=== PATIENT | female | born 1985 | race Caucasian/White ===

== ENCOUNTER 2016-08-11 18:16 | Emergency (ER) | payer OTHER ==
[~2016-08-11] VITALS: Ht 167.6 cm; Wt 66.5 kg
[~2016-08-11 18:16] MED LIST: CLIN300C86 PO; LEVO75TA4 PO; MEDR150D9 INJ
[2016-08-11 18:32] VITALS: Ht 167.6 cm; Wt 66.5 kg
--- NOTE | 2016-08-11 18:34 | ERPDOC ---
Departure Disposition Decision Date: Aug 11, 2016 Disposition Decision Time: 19:37 Disposition: 01 DISCHARGED HOME, SELF-CARE Impression Impression Impression: Primary Impression: Palpitation Additional Impression: Hypothyroidism Hypothyroidism type: unspecified Qualified Codes: E03.9 - Hypothyroidism, unspecified Severity: Moderate Condition: Stable Seen By: Mid-level only Referrals: ANITHA FIORE DO (Family) Patient Instructions: Palpitations (ED) Problems/Meds/Labs Reviewed?: Yes Medications reviewed and manag: Yes Additional Instructions: I do want you to call and follow up with Dr Jacobs tomorrow regarding the elevated TSH. Your level today was 11.3. Other labs and EKG were normal. If you have any other issues/concerns then return to ER for reevaluation. Follow up care ordered?: Yes Mental Status: Alert HPI - Chest Pain General Stated Complaint: HEART IS FLUTTERING/CHEST PAIN Time Seen by Provider: 18:18 Source: patient Exam Limitations: no limitations HPI - Chest Pain Initial Comments She was studying for school earlier today and had onset of feeling like she was having palpitations and like her heart was fluttering. She has never had this happen before. Had some slight SOA with the onset but is feeling better now. Is not really feeling the fluttering. She does have a history of hypothyroidism. Has only had one cup of coffee today and a little chocolate as far as caffeine goes. Has been taking medications as prescribed. Occurred At: home Onset/Timing: Rapid Duration: 1-3 hrs Activities at Onset/Context: rest (while studying ) Location: substernal Quality: sharp Associated Symptoms: fast HR, shortness of breath (slight), swelling/lump in chest, syncope, weakness, DENIES: abdominal pain, back pain, diaphoresis, dizziness, edema, fatigue, fever/chills, headache, heartburn, irregular HR, nausea/vomiting, rash, slow HR Chest Pain Radiation: no radiation Nitro Today/Relief: no nitro taken today Aspirin Treatment Today: unknown Hx of Similar Symptoms: No Allergies: Coded Allergies: NKDA (Verified Allergy, Unknown, 04/21/16) Uncoded Allergies: FISH (Allergy, Severe, ANAPHYLACTIC SHOCK, 08/18/13) Past History Patient Surgical History Tonsillectomy Appendectomy Past Medical History Metabolic: hypothyroidism Psychological: depression Surgical History General: appendix, tonsils Vaccines Hx Influenza Vaccination: Yes () Hx Pneumococcal Vaccination: No (UNKNOWN) Social History Substance Use Type: does not use Alcohol Intake: none Sexuality: male partner Review of Systems Constitutional Constitutional: DENIES: chills, dizziness, fatigue, fever, weakness ENMT Ears: DENIES: drainage, pain Sinuses: DENIES: congestion, rhinorrhea Mouth/Throat: DENIES: painful swallowing, scratchy throat, sore throat Cardiovascular Cardiac: chest pain, DENIES: dyspnea on exertion, orthopnea Rhythm/Rate: irregular beat, palpitations, tachycardia Vascular: DENIES: pedal edema, unilateral swelling Pulmonary Respiratory: DENIES: cough, dyspnea, sputum, tachypnea GI Upper Abdomen: DENIES: nausea, pain, vomiting Lower Abdomen: DENIES: constipation, diarrhea, pain Integumentary Skin: DENIES: rash Neurological General: DENIES: headache, numbness, tingling, weakness Physical Exam General General Nourishment: well nourished, well developed, appears stated age, no acute distress, adult General Body Habitus: well groomed Vitals and Pain First Documented Vital Signs Date Time Temp Pulse Resp B/P Pulse Ox O2 Delivery O2 Flow Rate FiO2 08/11/16 18:32 98.9 98 25 136/90 100 Room Air Weight: Kilograms: Height (feet): 5 Height (inches): 5.00 Triage Pain Scale: RN VS reviewed by Provider: Yes Normal Exams: Neck: Full range of motion, without adenopathy, JVD, bruits or thyromegaly Chest/Resp: Clear all chisholm, with good airflow, and symmetry bilaterally CV: Regular rate and rhythm, without murmur or gallop, Pulses 2+ all extremities, capillary refill, <2 seconds all ext., no pedal edema noted Abdomen: Bowel sounds positive, soft, non-tender, non-distended, no hepatosplenomegaly, masses or bruits noted Lymphatic: No lymphadenopathy, or lymphedema noted Integumentary: No rashes, hives, or bruising noted Neurologic: Patient is alert, and oriented Psychiatric: Patient exhibits, appropriate attention, emotion and affect Differential Diagnoses Considering: Acute TN, Anxiety/Panic, PSVT, Muscle Spasm, Other (Stress) Progress Results/Orders Orders Procedure Category Date Status Time EKG EKG 08/11/16 Taken Tsh - Thyroid Stim LAB 3/19/17 Complete Hormone Troponin I W LAB 08/11/16 Complete Hemolysis Index Cbc W/Auto LAB 08/11/16 Complete Diff-Reflex Manual Bmp - Basic Metabolic LAB 08/11/16 Complete Panel Ua, Dip Wreflex LAB 08/11/16 Complete Micro[employer] District Manager 18:27 LAB 08/11/16 Complete Qualitative, Urine 18:27 Lab Results Laboratory Tests Test 08/11/16 18:39 08/11/16 18:59 White Blood Count 8.4T/MM3 Red Blood Count 4.27M/MM3 Hemoglobin 12.5GM/DL Hematocrit 38.9% Mean Corpuscular Volume 91.1UM3 Mean Corpuscular Hemoglobin 29.3UUG Mean Corpuscular Hemoglobin Concent 32.1GM/DL RDW Standard Deviation 40.2FL Platelet Count 267T/MM3 Mean Platelet Volume 9.7UM3 Immature Granulocyte % (Auto) 0.0% Neutrophils (%) (Auto) 38.9% Lymphocytes (%) (Auto) 52.8% Monocytes (%) (Auto) 6.7% Eosinophils (%) (Auto) 1.2% Basophils (%) (Auto) 0.4% Absolute Immature Granulocyte (auto 0.00T/MM3 Absolute Neutrophils (auto) 3.3T/MM3 Absolute Lymphocytes (auto) 4.4T/MM3 Absolute Monocytes (auto) 0.6T/MM3 Absolute Eosinophils (auto) 0.1T/MM3 Absolute Basophils (auto) 0.0T/MM3 Turbidity < 20 Sodium Level 144MEQ/L Potassium Level 3.9MEQ/L Chloride Level 108MEQ/L Carbon Dioxide Level 24MEQ/L Anion Gap 12MEQ/L Blood Urea Nitrogen 12.0MG/DL Creatinine 0.7MG/DL Glomerular Filtration Rate Calc 100 BUN/Creatinine Ratio 17RATIO Glucose Level 81MG/DL Calculated Osmolality 276MOSM/KG Calcium Level 9.0MG/DL Icterus Index < 2 Troponin I < 0.012ng/ml Thyroid Stimulating Hormone (TSH) 11.30MIU/L Chemistry Specimen Hemolysis < 15 Urine Collection Type Cleancatch-midstream Urine Color Yellow Urine Turbidity Clear Urine pH 6.0 Urine Specific [place] 1.015 Urine Protein Negative Urine Glucose (UA) Negative Urine Ketones Negative Urine Blood Negative Urine Nitrite Negative Urine Bilirubin Negative Urine Urobilinogen 0.2EU/DL Urine Leukocyte Esterase Negative Urinalysis Comment Microscopic not ind. Urine Test Negative Progress Progress CBC, BMP, and troponin today are normal. EKG is NSR with rate of 98. She has not had any palpitations or change in rhythm while in ER. TSH is 11.3. I did advise that she call and follow up with her PCP this week for reevaluation of that TSH. DAYO DOMINGUEZ APRN Aug 11, 2016 18:34
--- NOTE | 2016-08-11 18:50 | NUR ---
STATUS PT IN BED HIGH FOWLERS, LOOKING AT HER PHONE. DENIES NEEDS AT THIS TIME
[2016-08-11 18:53] LABS: BASOPHILS % (AUTO) 0.4 % (0-2); EOSINOPHILS # (AUTO) 0.1 T/MM3 (0-0.5); EOSINOPHILS % (AUTO) 1.2 % (0-4); HCT - HEMATOCRIT 38.9 % (36-46); HGB - HEMOGLOBIN 12.5 GM/DL (12-16); LYMPHOCYTES # (AUTO) 4.4 T/MM3 (1-4.8); LYMPHOCYTES % (AUTO) 52.8 % (23-45); MEAN CORPUSCULAR HGB 29.3 UUG (26-34); MEAN CORPUSCULAR HGB CONC(MCHC 32.1 GM/DL (31-37); MEAN CORPUSCULAR VOLUME 91.1 UM3 (80-100); MEAN PLATELET VOLUME 9.7 UM3 (9.4-12.4); MONOCYTES # (AUTO) 0.6 T/MM3 (0-0.8); MONOCYTES % (AUTO) 6.7 % (0-9.0); NEUTROPHILS #(AUTO)-ABSOLUTE 3.3 T/MM3 (1.8-7.7); NEUTROPHILS % (AUTO) 38.9 % (33-66); RED BLOOD COUNT 4.27 M/MM3 (4.00-5.20); WBC - WHITE BLOOD COUNT 8.4 T/MM3 (4.5-11.0)
[2016-08-11 18:58] LABS: ANION GAP 12 MEQ/L (5-15); BUN/CREATININE RATIO 17 RATIO (6-26); CHLORIDE 108 MEQ/L (98-107); CO2 - CARBON DIOXIDE 24 MEQ/L (22-30); CREATININE 0.7 MG/DL (0.7-1.2); GLOMERULAR FILTRATION RATE 100; GLUCOSE 81 MG/DL (65-110); POTASSIUM 3.9 MEQ/L (3.6-5); SODIUM 144 MEQ/L (134-144)
[2016-08-11 19:04] LABS: BLOOD, URINE NEGATIVE (NEGATIVE); COLOR,URINE YELLOW (YELLOW); LEUKOCYTE ESTERASE ,URINE NEGATIVE (NEGATIVE); NITRITE,URINE NEGATIVE (NEGATIVE); UROBILINOGEN,URINE 0.2 EU/DL (NORMAL)
[2016-08-11 19:50] VITALS: BP 112/72; PULSE 91; RESP 23; TEMP 98.9; O2SAT 98
--- OUTSIDE RECORDS SUMMARY | 2016-08-11 20:00 | XMS REPORT | Continuity of Care Document ---
Author Author [facility] Organization [facility] Address Unknown Phone Unavailable Support Name Relationship Address Phone SHORTY KRISHNAMURTHY MD Caregiver [address] [place] [address] Unavailable LAYA JACOBS MD Caregiver [address] [place] [address] Unavailable RYNE CM Next Of Kin [address] [place] [address] CP Insurance Providers Guarantor Jodee Cm Address [address] [place] [address] CP Email [email or web address] Payer [employer] Policy Number [id number] Subscriber's Name Ryne Cm Relationship 01 Spouse Group Number [id number] Chief Complaint and Reason for Visit Chief Complaint Palpitations Reason for Visit Hypothyroidism Palpitation Problems Active Problems Medical Problem Onset Date Status Dehydration Unknown Acute Episode of syncope Unknown Acute related condition in second trimester Unknown Acute with history of caesarean section, antepartum Unknown Acute UTI (urinary tract infection) Unknown Acute Past Problems Medical Problem Onset Date Adverse reaction to drug in therapeutic use Unknown Esophageal reflux Unknown Hypothyroidism Unknown Left shoulder pain Unknown Palpitation Unknown Medications Current Home Medications Medication Dose Units Route Directions Days Qty Instructions Start Date Levothyroxine Sodium (Synthroid) 75 Mcg Tablet 75 Mcg Oral Before Breakfast 04/21/16 Medroxyprogesterone Acetate (Depo-Provera) Unknown Strength Syringe Unknown Dose Injection [id number] 04/21/16 Past Home Medications Medication Directions Ordered Status Psyllium Seed (Metamucil) 1,042 Gm Powder, Unknown Dose Oral As Needed 12/25 Discontinued Social History Social History Problem Response Recorded Date/Time Onset Date Status Hx Substance Use No 08/11/2016 6:43pm Not Applicable Not Applicable Hx Alcohol Use Y RARELY 08/11/2016 6:43pm Not Applicable Not Applicable Has the pt used tobacco in the last 12 months No 04/04/2015 6:15am Not Applicable Not Applicable Tobacco Usage none 04/19/2015 2:20pm Not Applicable Not Applicable Query Response Start Date Stop Date Smoking Status Never smoker Hospital Discharge Instructions No hospital discharge instructions. Plan of Care Discharge Date 08/11/16 7:50pm Disposition 01 DISCHARGED HOME, SELF-CARE Condition at Discharge Stable Instructions/Education Provided Palpitations (ED) Prescriptions See Medication Section Referrals LAYA JACOBS MD Address: [address] [place] [address] [place] [address] Additional Instructions/Education I do want you to call and follow up with Dr Jacobs tomorrow regarding the elevated TSH. Your level today was 11.3. Other labs and EKG were normal. If you have any other issues/concerns then return to ER for reevaluation. Care Plan and Goals Physician Care Plan Problem:Palpitations Goal: Follow up with primary care provider Instructions: Take medications and follow care plan as discussed/written Functional Status No functional status results. Allergies, Adverse Reactions, Alerts Allergen Type Severity Reaction Status Last Updated NKDA Allergy Unknown Active 04/21/16 FISH Allergy Severe ANAPHYLACTIC SHOCK Active 08/18/13 Immunizations Query Response on File Recorded Date/Time Hx Influenza Vaccination Y 11/04/14 7:45am Hx Pneumococcal Vaccination N UNKNOWN 11/04/14 7:45am Hx Influenza Vaccination Y 11/04/14 7:45am Influenza Vaccine Hx 02-24-16 08/11/16 6:43pm Tdap Vaccine Hx 02-23-15 04/04/15 6:15am Vital Signs Acute Vital Signs Vital Response Date/Time Temperature (Fahrenheit) 98.9 deg F (96.8 - 99.1) 08/11/2016 7:50pm Temperature (Calculated Celsius) 37.90467 degrees C (36.0 - 37.3) 08/11/2016 7:50pm Pulse Rate (adult) 91 bpm (60 - 100) 08/11/2016 7:50pm Respiratory Rate 23 breaths/min (10 - 20) 08/11/2016 7:50pm O2 Sat by Pulse Oximetry 98 % (90 - 100) 08/11/2016 7:50pm Blood Pressure 112/72 mm Hg 08/11/2016 7:50pm Height (Feet) 5 feet 08/11/2016 6:32pm Height (Inches) 6.00 inches 08/11/2016 6:32pm Weight (Kilograms) 66.500 kg 08/11/2016 6:32pm Body Mass Index (BMI) 23.0 08/11/2016 6:32pm Results Laboratory Results Test Name Result Units Flags Reference Collection Date/Time Result Date/ Time Comments White Blood Count 8.4 T/MM3 4.5-11.0 08/11/2016 6:39pm 08/11/2016 6: 53pm Red Blood Count 4.27 M/MM3 4.00-5.20 08/11/2016 6:39pm 08/11/2016 6: 53pm Hemoglobin 12.5 GM/DL 12-16 08/11/2016 6:39pm 08/11/2016 6:53pm Hematocrit 38.9 % 36-46 08/11/2016 6:39pm 08/11/2016 6:53pm Mean Corpuscular Volume 91.1 UM3 80-100 08/11/2016 6:39pm 08/11/2016 6: 53pm Mean Corpuscular Hemoglobin 29.3 UUG 26-34 08/11/2016 6:39pm 2016 6:53pm Mean Corpuscular Hemoglobin Concent 32.1 GM/DL 31-37 08/11/2016 6:39pm 08/11/2016 6:53pm RDW Standard Deviation 40.2 FL 36.9-50.2 08/11/2016 6:39pm 08/11/2016 6 :53pm Platelet Count 267 T/MM3 130-400 08/11/2016 6:39pm 08/11/2016 6:53pm Mean Platelet Volume 9.7 UM3 9.4-12.4 08/11/2016 6:39pm 08/11/2016 6: 53pm Neutrophils (%) (Auto) 38.9 % 33-66 08/11/2016 6:39pm 08/11/2016 6: 53pm Lymphocytes (%) (Auto) 52.8 % H 23-45 08/11/2016 6:39pm 08/11/2016 6: 53pm Monocytes (%) (Auto) 6.7 % 0-9.0 08/11/2016 6:39pm 08/11/2016 6:53pm Eosinophils (%) (Auto) 1.2 % 0-4 08/11/2016 6:39pm 08/11/2016 6:53pm Basophils (%) (Auto) 0.4 % 0-2 08/11/2016 6:39pm 08/11/2016 6:53pm Immature Granulocyte % (Auto) 0.0 % 0.0-0.5 08/11/2016 6:39pm 2016 6:53pm Absolute Neutrophils (auto) 3.3 T/MM3 1.8-7.7 08/11/2016 6:39pm 2016 6:53pm Absolute Lymphocytes (auto) 4.4 T/MM3 1-4.8 08/11/2016 6:39pm 2016 6:53pm Absolute Monocytes (auto) 0.6 T/MM3 0-0.8 08/11/2016 6:39pm 08/11/2016 6:53pm Absolute Eosinophils (auto) 0.1 T/MM3 0-0.5 08/11/2016 6:39pm 2016 6:53pm Absolute Basophils (auto) 0.0 T/MM3 0-0.2 08/11/2016 6:39pm 08/11/2016 6:53pm Absolute Immature Granulocyte (auto 0.00 T/MM3 0.00-0.03 08/11/2016 6: 39pm 08/11/2016 6:53pm Icterus Index < 2 0-7 08/11/2016 6:39pm 08/11/2016 6:58pm Chemistry Specimen Hemolysis < 15 0-25 08/11/2016 6:39pm 08/11/2016 6 :58pm 0-25: Specimen Exhibited No Hemolysis. Turbidity < 20 0-20 08/11/2016 6:39pm 08/11/2016 6:58pm Sodium Level 144 MEQ/L 134-144 08/11/2016 6:39pm 08/11/2016 6:58pm Potassium Level 3.9 MEQ/L 3.6-5 08/11/2016 6:39pm 08/11/2016 6:58pm Chloride Level 108 MEQ/L H 98-107 08/11/2016 6:39pm 08/11/2016 6:58pm Carbon Dioxide Level 24 MEQ/L 22-30 08/11/2016 6:39pm 08/11/2016 6: 58pm Anion Gap 12 MEQ/L 5-15 08/11/2016 6:39pm 08/11/2016 6:58pm Blood Urea Nitrogen 12.0 MG/DL 7-17 08/11/2016 6:39pm 08/11/2016 6: 58pm Creatinine 0.7 MG/DL 0.7-1.2 08/11/2016 6:39pm 08/11/2016 6:58pm BUN/Creatinine Ratio 17 RATIO 6-26 08/11/2016 6:39pm 08/11/2016 6:58pm Glomerular Filtration Rate Calc 100 08/11/2016 6:39pm 08/11/2016 6: 58pm Glucose Level 81 MG/DL 65-110 08/11/2016 6:39pm 08/11/2016 6:58pm Calculated Osmolality 276 MOSM/KG 261-280 08/11/2016 6:39pm 08/11/2016 6:58pm Calcium Level 9.0 MG/DL 8.4-10.2 08/11/2016 6:39pm 08/11/2016 6:58pm Troponin I < 0.012 ng/ml 0-0.12 08/11/2016 6:39pm 08/11/2016 7:10pm Troponin values with a difference of 55% increase from orginal troponin value represent a true biological DELTA value. (%increase Calc=Orginal Troponin value, divided by subsequent Troponin value, multiplied by 100) Thyroid Stimulating Hormone (TSH) 11.30 MIU/L D H 0.47-4.68 08/11/2016 6: 39pm 08/11/2016 7:32pm Urine Collection Type CLEANCATCH-MIDSTREAM 08/11/2016 6:59pm 2016 7:04pm Urine Color YELLOW YELLOW 08/11/2016 6:59pm 08/11/2016 7:04pm Urine Turbidity CLEAR CLEAR 08/11/2016 6:59pm 08/11/2016 7:04pm Urine Specific [place] 1.015 1.015-1.025 08/11/2016 6:59pm 2016 7:04pm Urine pH 6.0 5.0-8.0 08/11/2016 6:59pm 08/11/2016 7:04pm Urine Leukocyte Esterase NEGATIVE NEGATIVE 08/11/2016 6:59pm 2016 7:04pm Urine Nitrite NEGATIVE NEGATIVE 08/11/2016 6:59pm 08/11/2016 7:04pm Urine Protein NEGATIVE NEGATIVE 08/11/2016 6:59pm 08/11/2016 7:04pm Urine Glucose (UA) NEGATIVE NEGATIVE 08/11/2016 6:59pm 08/11/2016 7: 04pm Urine Ketones NEGATIVE NEGATIVE 08/11/2016 6:59pm 08/11/2016 7:04pm Urine Urobilinogen 0.2 EU/DL NORMAL 08/11/2016 6:59pm 08/11/2016 7: 04pm Urine Bilirubin NEGATIVE NEGATIVE 08/11/2016 6:59pm 08/11/2016 7: 04pm Urine Blood NEGATIVE NEGATIVE 08/11/2016 6:59pm 08/11/2016 7:04pm Urinalysis Comment MICROSCOPIC NOT IND. 08/11/2016 6:59pm 2016 7:04pm Procedures No known history of procedures. Encounters Encounter Location Arrival/Admit Date Discharge/Depart Date Attending Provider Departed Emergency Room [facility] 08/11/16 6:16pm 08/11/16 7: 50pm SHORTY KRISHNAMURTHY MD Recent Diagnosis
== END 2016-08-11 19:50 | disposition home or self-care (01) ==
LOC: ED 18:16
DX: R00.2 Palpitations (principal); E03.9 Hypothyroidism, unspecified
CPT/HCPCS: 80048; 81003; 81025; 84443; 84484; 85025; 93005